=== PATIENT | male | born 1965 | race Caucasian/White ===

== ENCOUNTER 2016-04-10 16:04 | Emergency (ER) | payer BC ==
[2016-04-10 16:13] VITALS: BP 127/77
--- NOTE | 2016-04-10 17:05 | RAD ---
INDICATION: Cough and wheezing COMPARISON: None TECHNIQUE: PA and lateral views of the chest were obtained. FINDINGS: The heart and mediastinum are normal in size and contour. The lungs are grossly clear. There is no evidence of large pleural effusion. Visualized bones are normal for the patient's age. There is no radiographic evidence of free air beneath the diaphragm IMPRESSION: No radiographic evidence of acute cardiopulmonary disease.
[2016-04-10] MEDS ORDERED: Albuterol HFA INHALER* 8 gm MDI INH ONE (17:26)
[2016-04-10] MEDS ORDERED: Benzonatate CAP* 100 MG PO ONE (17:28)
--- NOTE | 2016-04-10 17:37 | UC ---
Throat Pain/Nasal Derek HPI - HPI Summary HPI Summary: THREE DAYS OF FEVER COUGH AND WHEEZING. HISTORY OF PNEUMONIA 20 YRS AGO, FELT LIKE THIS. NO HEAD CONGESTION NO SORE THROAT. FEVER CONTROLLED BY TYLENOL IBUPROFEN - History of Current Complaint Chief Complaint: UCRespiratory Stated Complaint: COUGH Time Seen by Provider: 04/10/16 16:22 Hx Obtained From: Patient Onset/Duration: Sudden Onset Severity: Mild Cough: Nonproductive Associated Signs & Symptoms: Positive: Fever - Epiglottits Risk Factors Epiglottis Risk Factors: Negative - Allergies/Home Medications Allergies/Adverse Reactions: Allergies Allergy/AdvReac Type Severity Reaction Status Date / Time Latex Allergy LOCALIZED Verified 05/30/13 07:48 RASH PMH/Surg Hx/FS Hx/Imm Hx Previously Healthy: Yes Endocrine History Of: Denies: Diabetes, Thyroid Disease, Hyperthyroidism, Hypothyroidism Cardiovascular History Of: Denies: Cardiac Disorders, Hypertension, Pacemaker/ICD Respiratory History Of: Denies: COPD, Asthma GI/ History Of: Denies: Ulcer Neurological History Of: Denies: TIA, Seizures Psychological History Of: Denies: Anxiety, Depression - Surgical History Surgical History: Yes Surgery Procedure, Year, and Place: [id number] 05/03/2007; 2002 CATARACT; Lt ACL 1999; JEREMI INGUINAL HERNIA 1986; DETACHED RETINA - 1980(ORBITS DONE CLEARED BY DR SHRESTHA - Family History Known Family History: Positive: None Negative: Respiratory Disease - Social History Occupation: Employed Full-time Lives: With Family Alcohol Use: None Substance Use Type: None Smoking Status (MU): Never Smoked Tobacco Have You Smoked in the Last Year: No Review of Systems Constitutional: Fever Skin: Negative Eyes: Negative ENT: Negative Respiratory: Cough Cardiovascular: Negative Gastrointestinal: Negative Genitourinary: Negative Motor: Negative Neurovascular: Negative Musculoskeletal: Negative Neurological: Negative Psychological: Negative All Other Systems Reviewed And Are Negative: Yes Physical Exam Triage Information Reviewed: Yes Appearance: Well-Appearing, No Pain Distress, Well-Nourished Vital Signs: Initial Vital Signs Temp 99.1 F 04/10/16 16:10 Pulse 97 04/10/16 16:10 Resp 18 04/10/16 16:10 BP 127/77 04/10/16 16:10 Pulse Ox 99 04/10/16 16:10 Vital Signs Reviewed: Yes Eye Exam: Normal Eyes: Positive: Conjunctiva Clear ENT: Positive: Normal ENT inspection, Hearing grossly normal, Pharynx normal, TMs normal Dental Exam: Normal Neck exam: Normal Neck: Positive: Supple, Nontender, No Lymphadenopathy. Negative: Nuchal Rigidity, Tenderness @ Respiratory: Positive: Chest non-tender, Normal breath sounds, No respiratory distress, No accessory muscle use, Wheezing Cardiovascular Exam: Normal Cardiovascular: Positive: RRR, No Murmur, Pulses Normal Abdominal Exam: Normal Abdomen Description: Positive: Nontender, No Organomegaly Musculoskeletal Exam: Normal Musculoskeletal: Positive: Strength Intact Neurological Exam: Normal Psychological Exam: Normal Psychological: Positive: Normal Response To Family Skin Exam: Normal Throat Pain/Nasal Course/Dx - Differential Dx/Diagnosis Differential Diagnosis/HQI/PQRI: Pharyngitis, Sinusitis, URI Provider Diagnoses: BRONCHITIS WITH BRONCHOSPASM Discharge - Discharge Plan Condition: Stable Disposition: HOME Prescriptions: Benzonatate CAP* [Tessalon CAP*] 100 mg PO TID #15 cap Patient Education Materials: Acute Bronchitis (ED), Bronchospasm (ED) Referrals: Javid Lopez MD [Primary Care Provider] -
== END 2016-04-10 17:40 | disposition home or self-care (01) ==
LOC: UCEAST 16:04
DX: J20.9 Acute bronchitis, unspecified (principal)
CPT/HCPCS: 71020; 99212; A9270-GY; G0463

== ENCOUNTER 2018-01-04 09:22 | Inpatient (IN) | payer BC ==
[~2018-01-04 09:22] MED LIST: Bacitracin IV* 50,000 UNITS INJ ONE; Buffered Lidocaine 0.9% SYRIN* 5 ML/SYR SYRINGE INTRADERM ONE; Famotidine IV* 10 MG/ML 2 ML (20 mg) IV ONE; Lidocaine 1% MPF wEPI 200,000* 30 ML SDV ONE; Scopolamine 1.5 mg* PATCH TRANSDERM ONE; Thrombin 5,000 UNITS* 1 APPLIC KIT - topical use - TOPICAL ONE
[2018-01-04] MEDS ORDERED: Scopolamine 1.5 mg* PATCH ONE (09:25)
[2018-01-04] MEDS ORDERED: Famotidine IV* 10 MG/ML 2 ML (20 mg) ONE (09:25)
[2018-01-04] MEDS ORDERED: ceFAZolin 2 GM PREMIX in ORs 2 GM/50 ML BAG IVPB ONE (09:30)
[2018-01-04] MEDS ORDERED: Lidocaine 2% PF * 5 ML VIAL ONE (09:55)
[2018-01-04] MEDS ORDERED: Dexamethasone IV* 4 MG/ML 1 ML (4 MG) ONE ×2 (09:55→10:54)
[2018-01-04] MEDS ORDERED: fentaNYL* 50 MCG/ML 5 ML VIAL (250 MCG VIAL) ONE (09:55)
[2018-01-04] MEDS ORDERED: Cisatracurium* 2 MG/ML MDV 5 ML ONE (09:55)
[2018-01-04] MEDS ORDERED: Ondansetron INJ* 2 MG/ML VIAL ONE (09:55)
[2018-01-04] MEDS ORDERED: Propofol* 10 MG/ML 20 ML BTL IV PUSH ONE (09:55)
[2018-01-04] MEDS ORDERED: KETAMINE HCL* 50 MG/ML 10 ML VIAL ONE (09:55)
[2018-01-04] MEDS ORDERED: Artificial Tear OPHTH.OINT* 3.5 GM ONE (09:56)
[2018-01-04] MEDS ORDERED: Midazolam* 1 MG/ML 5 ML VIAL (5 MG) ONE (09:56)
[2018-01-04] MEDS ORDERED: EPHEDrine (Pressors)* 50 MG/ML VIAL ONE (11:29)
[2018-01-04] MEDS ORDERED: fentaNYL* 50 MCG/ML 2 ML VIAL (100 MCG VIAL) ONE (12:25)
[2018-01-04] MEDS ORDERED: HYDROmorphone INJ1* 1 MG/ML SYRINGE ONE (13:10)
[2018-01-04] MEDS ORDERED: Acetaminophen TAB* 325 MG PO PRN (13:46)
[2018-01-04] MEDS ORDERED: Magnesium Hydroxide LIQ* 30 ML UDC PO PRN (13:46)
[2018-01-04] MEDS ORDERED: Ondansetron INJ* 2 MG/ML VIAL IV PRN ×2 (13:46→14:12)
[2018-01-04] MEDS ORDERED: Cyclobenzaprine TAB* 10 MG PO PRN (13:50)
[2018-01-04] MEDS ORDERED: Naloxone* 0.4 MG/ML 1 ML VIAL IV PRN (14:12)
[2018-01-04] MEDS ORDERED: fentaNYL* 50 MCG/ML 2 ML VIAL (100 MCG VIAL) IV PRN (14:12)
[2018-01-04] MEDS: HYDROcodone/ACETAMIN 5-325 MG* 1 TAB PO PRN ×2 (15:02→20:27)
[2018-01-05] MEDS: HYDROcodone/ACETAMIN 5-325 MG* 1 TAB PO PRN ×2 (03:24→10:14)
--- NOTE | 2018-01-05 08:08 | OP ---
DATE OF OPERATION: 01/04/18 - ROOM #333 DATE OF : 61 SURGEON: James Appiah MD. INDEPENDENT FILM MAKER: CRISTI Hong. The case was done with the assistance of a surgical PA because of the complexity of the case. ANESTHESIA: General. PRE-OP DIAGNOSES: Degenerative disk disease, herniated nucleus pulposus C5-6. POST-OP DIAGNOSES: Degenerative disk disease, herniated nucleus pulposus C5-6. OPERATIVE PROCEDURE: The patient underwent anterior cervical diskectomy and fusion at C5-6 with PEEK interbody cage, locally harvested bone graft and DBX, and anterior instrumentation with plate and screws. ESTIMATED BLOOD LOSS: 15 cc. COMPLICATIONS: None. SUMMARY: The patient is a very pleasant 52-year-old gentleman with complaints of neck pain radiating to the right upper extremity. The patient had MRI findings consistent with right disk herniation at C5-6. After failing conservative modalities, she was offered the option of surgical intervention in the form of anterior cervical diskectomy and fusion at C5-6 level. After explaining the expectation, limitations, possible complications of the procedure with the patient and his with complications including but not limited to bleeding, infection, risk of injury to the adjacent structures, paralysis, , need for additional procedure, anesthesia risk, stroke, blindness, cancer, instability, hardware failure, adjacent level disease, proximal or distal junctional kyphosis, pseudoarthrosis, spinal fluid leak, recurrent laryngeal nerve injury, Leanne syndrome, need for tracheostomy or gastrostomy, need for prolonged ICU stay, anesthesia risk. The patient was agreeable to proceed with surgery and informed consent was obtained. The patient understood that his condition may not improve, in fact may get worse after surgery and that he may need to have additional procedures in the future. The patient also understood that the operative plan may be modified according to intraoperative findings and conditions. DESCRIPTION OF PROCEDURE: The patient was brought to the operating room, was placed under general anesthesia by the anesthesia team. He was carefully positioned supine on a flat-top Kevin table and all bony prominences were meticulously padded. His skin was prepped and draped in a standard fashion. After appropriate surgical pause and patient identification, a right transverse incision was marked at the level of C5-6, as defined with intraoperative fluoroscopic imaging. The skin was infiltrated with local anesthetic and the # 10 surgical blade was used for the skin incision. The skin was gently undermined with tenotomy scissors and the platysma was gently divided with the use of Bovie cautery and tenotomy scissors. The platysma was then gently undermined and the self-retaining retractors were introduced into the field. The plane between the medial border of the sternocleidomastoid and the medial structures was gently developed with the use of soft and blunt dissection and after exposing the anterior spine and dissecting the prevertebral fascia, intraoperative fluoroscopic imaging was used to confirm the appropriate level. After confirmation of the appropriate surgical level and surgical pause, the self-retaining retractors were introduced into the field. Two [place] pins were then inserted at the C5 and C6 level and gentle retraction was performed. Standard diskectomy was performed after incising the annulus fibrosus with a # 15 surgical blade with the use of pituitary rongeurs, curettes, Kerrison punches and high speed drill while locally harvested bone graft of the anterior osteophytes was saved for the use of the arthrodesis part of the procedure. Under microscopic magnification, high-speed drill was used to complete the diskectomy and the preparation of the disk space and the endplates for the arthrodesis part. The posterior ligament was then gently dissected with #1 Kerrison punches. The dura was found to be free of any pressure phenomenon, as well as both neuroforamina were found to be extremely patent and the spinal cord was pulsating nicely. After confirmation of meticulous hemostasis and copious irrigation, a 9 mm height PEEK Medtronic interbody spacer was inserted after being filled with locally harvested bone graft and DBX putty. A 21 mm ZEVO Medtronic plate was placed after removing of the [place] pins and preparation of the anterior surface of the vertebral body and secured with 15 mm titanium screws. Intraoperative fluoroscopic imaging confirmed excellent placement of all hardware. After confirmation of meticulous hemostasis and meticulous inspection, the self- retaining retractors were removed and the wound was closed by layers over a Solitario drain, which was done through a separate stab wound incision. 2-0 interrupted sutures were used to approximate the platysma while 2-0 Vicryl interrupted sutures were used to approximate the subcutaneous tissue. The skin was then approximated with Dermabond and covered with sterile dressing. At the end of the procedure, all counts were reported to be correct. The patient remained hemodynamically stable throughout the case. He was then extubated and was transferred to recovery in excellent condition, moving all extremities well. The case was done with the assistance of a surgical PA because of the complexity of the case. [id number]/[facility] #: [id number] DEBBY
--- NOTE | 2018-01-05 09:56 | PN ---
Progress Note - Progress Note Date of Service: 01/05/18 SOAP: Subjective: [S/p ACD F C5-6, POD#1. Feeling well this morning, complains of neck soreness. Pain controlled with PO meds. Upper extremity symptoms improving. Eating soft foods well. Ambulating independently.] Objective: [ Vital Signs: Temp Pulse Resp BP Pulse Ox 97.6 F 76 18 127/75 96 01/05/18 03:26 01/05/18 03:26 01/05/18 06:36 01/05/18 03:26 01/05/18 03:26 General: Alert and sitting up in bed, NAD. Neuro: Motor and sensory intact. [place] J collar in place. Incision: Intact and without swelling or erythema. Drain removed today without complication. Wound drain output 01/04/18 01/04/18 01/05/18 18:11 22:00 05:41 Output, FOREIGN #1 5 5 5 ] Assessment: [Satisfactory post-op course. ] Plan: [1. Discharge home today. 2. Discharge instructions reviewed.]
[2018-01-05 10:02] VITALS: BP 133/79
--- NOTE | 2018-01-06 13:37 | DS ---
DISCHARGE SUMMARY: DATE OF ADMISSION: 01/04/18. DATE OF DISCHARGE: 01/05/18. ADMISSION DIAGNOSIS: Degenerative disk disease, herniated nucleus pulposus, C5-6. DISCHARGE DIAGNOSIS: Degenerative disk disease, herniated nucleus pulposus, C5-6. DISPOSITION: Home. CONDITION ON DISCHARGE: Good. SUMMARY: The patient is a very pleasant 52-year-old gentleman with complaints of neck pain radiating to the right upper extremity. MRI revealed a right disk herniation at C5-6. The patient was offere d the option of surgical intervention in the form of anterior cervical diskectomy and fusion at C5-6 level. After explaining the expectation, limitations, possible complications of the procedure to the patient, the patient was agreeable to proceeding with surgery. Informed consent was obtained. The patient tolerated the procedure well, was extubated and transferred to the floor. On the first posto perative day, he continued to improve. His wound was healing nicely. He was able to tolerate p.o. we ll, void, and his pain was under control. He was able to ambulate. His drain was discontinued and h e was found to be ready to be discharged home. Full discharge instructions were given to the patient. [id number]/[facility] #: [id number]
[2018-01-07] MEDS ORDERED: Scopolamine PATCH Remove* 1 NOTE MISC PATCH OFF ONE (06:00)
== END 2018-01-05 11:15 | disposition home or self-care (01) | DRG 23 ==
LOC: AA 09:22 → SSU 14:45
PROVIDERS: ADMIT Neurological Surgery; ATTEND Neurological Surgery
PROC: 0RB30ZZ Excision of Cervical Vertebral Disc, Open Approach (ICD-10-PCS; 2018-01-04)
PROC: 0RG10A0 Fusion of Cervical Vertebral Joint with Interbody Fusion Device, Anterior Approach, Anterior Column, Open Approach (ICD-10-PCS; principal; 2018-01-04 12:45)
DX: M50.122 Cervical disc disorder at C5-C6 level with radiculopathy (principal); G89.29 Other chronic pain; M25.78 Osteophyte, vertebrae; G47.33 Obstructive sleep apnea (adult) (pediatric); G47.00 Insomnia, unspecified; Z98.42 Cataract extraction status, left eye; Z91.040 Latex allergy status; Z82.49 Family history of ischemic heart disease and other diseases of the circulatory system; Z81.8 Family history of other mental and behavioral disorders
CPT/HCPCS: 72020; 72040; A9270-GY; J0690; J1100; J1170; J2001; J2250; J2405; J2704; J3010

== ENCOUNTER 2019-02-15 13:15 | Emergency (ER) | payer BC ==
--- OUTSIDE RECORDS SUMMARY | 2019-02-15 13:29 | XMS REPORT | Continuity of Care Document ---
:1965 External Reference #:[id number] Author Name CRISTI Serra (transmitted by agent of provider Queenie Fisher) Address [address] [place] [address] Care Team Providers Name Role Phone Javid Loepz MD - Family Care Team Information Sequins Slinger [phone] Medicine Problems Active Problems Provider Date Disturbance in sleep behavior Rachana Leon MD Onset: 03/06/2015 Insomnia Rachana Leon MD Onset: 03/06/2015 Obstructive sleep apnea syndrome Nanci Bang DNP, RN, ASSEMBLING FABRICATOR- Onset: Social History Type Date Description Comments Sex Unknown ETOH Use Never used alcohol Tobacco Use Start: Unknown Patient has never smoked Smoking Status Reviewed: 01/02/19 Patient has never smoked Exercise Type/Frequency Exercises regularly Allergies, Adverse Reactions, Alerts Active Allergies Reaction Severity Comments Date Latex 03/06/2015 Medications Active Medications SIG Qnty Indications Ordering Provider Date Cervical Collar Keep on all Vassilios 02/12/2018 Misc times MD Bijal Cyclobenzaprine HCL one by mouth Unknown 03/05/2015 10mg three times a Tablets day as needed spasm Aleve 2 by mouth Unknown 03/05/2015 220mg Capsules twice a day as needed Immunizations Description No Information Available Vital Signs Date Vital Result Comment 01/02/2019 2:28pm Height 80 inches 6'8" Weight 275.00 lb Heart Rate 80 /min BP Systolic Sitting 120 mmHg BP Diastolic Sitting 74 mmHg Pain Level 0 BMI (Body Mass Index) 30.2 kg/m2 10/01/2018 2:52pm Height 80 inches 6'8" Weight 275.00 lb BP Systolic Standing 128 mmHg BP Diastolic Standing 78 mmHg Pain Level 0 BMI (Body Mass Index) 30.2 kg/m2 Results Description No Information Available Procedures Description No Information Available Medical Devices Description No Information Available Encounters Type Date Location Provider Dx Diagnosis Office Visit 10/01/2018 Neurosurgery Juan [facility]ino, Z48.89 Encounter for 3:[facility] other specified surgical aftercare Assessments Date Code Description Provider 01/02/2019 Z48.89 Encounter for other specified surgical aftercare CRISTI Serra 10/01/2018 Z48.89 Encounter for other specified surgical aftercare CRISTI Serra Plan of Treatment No Information Available Functional Status Description No Information Available Mental Status Description No Information Available Referrals Description No Information Available
[2019-02-15 13:43] LABS: ABS Monocytes 0.8 10^3/ul (0-0.8); ABS Neutrophils 5.6 10^3/ul (1.5-7.7); Eosinophil % 0.6 %; Hematocrit 48 % (42-52); Hemoglobin 16.1 g/dL (14.0-18.0); Lymphocyte % 13.4 %; Mean Corpuscular HGB Conc 34 g/dL (31-36); Mean Corpuscular Hemoglobin 29 pg (27-31); Mean Corpuscular Volume 86 fL (80-94); Platelet Count 179 10^3/uL (150-450); Red Blood Count 5.57 10^6 /uL (4.18-5.48); Red Cell Distribution Width 14 % (10-15); White Blood Count 7.4 10^3/uL (3.5-10.8)
[2019-02-15 13:53] LABS: INR 1.15 (0.82-1.09)
[2019-02-15 14:02] LABS: Albumin 4.3 g/dL (3.2-5.2); Albumin/Globulin Ratio 1.5 (1-3); BUN/Creatinine Ratio 17.6 (8-20); Calcium 9.6 mg/dL (8.6-10.3); EGFR African American 85.9 (>60); Globulin 2.9 g/dL (2-4); Potassium 4.2 mmol/L (3.5-5.0); Total Bilirubin 1.3 mg/dL (0.2-1.0); Total Protein 7.2 g/dL (6.4-8.9)
[2019-02-15] MEDS ORDERED: Aspirin 81 mg CHEW TAB* 81 MG TAB.CHEW PO ONE (14:45)
--- NOTE | 2019-02-15 14:46 | ED ---
HPI Chest Pain - HPI Summary HPI Summary: This patient is a 53 year old male presenting to [facility] with a chief complaint of chest pain. He states it woke him up this morning. He reports SOB upon exertion. He states the pain radiated to his jaw, neck, and shoulder.. He denies n/v and skin diaphoresis. He states it hurts to take a deep breath. He describes his pain as an ache. He rates his pain 5/10 in severity. He localizes his pain to the lower left sternum. - History of Current Complaint Chief Complaint: EDChestWallPain Time Seen by Provider: 02/15/19 14:36 Hx Obtained From: Patient Onset/Duration: Started Hours Ago Pain Intensity: 5 Pain Scale Used: 0-10 Numeric Chest Pain Location: Lower Sternal - Allergy/Home Medications Allergies/Adverse Reactions: Allergies Allergy/AdvReac Type Severity Reaction Status Date / Time latex AdvReac Mild Rash Verified 02/15/19 13:25 PMH/Surg Hx/FS Hx/Imm Hx Endocrine/Hematology History: Denies: Hx Diabetes, Hx Thyroid Disease Cardiovascular History: Denies: Hx Hypertension, Hx Pacemaker/ICD, Hx Peripheral Vascular Disease Respiratory History: Reports: Hx Sleep Apnea - does not use machine- mild Denies: Hx Asthma, Hx Chronic Obstructive Pulmonary Disease (COPD) GI History: Denies: Hx Ulcer Musculoskeletal History: Reports: Hx Tendonitis Denies: Hx Arthritis, Hx Rheumatoid Arthritis, Hx Osteoporosis, Hx Scoliosis Sensory History: Denies: Hx Cataracts, Hx Contacts or Glasses, Hx Glaucoma, Hx Hearing Aid Opthamlomology History: Denies: Hx Cataracts, Hx Contacts or Glasses, Hx Glaucoma Neurological History: Denies: Hx Headaches, Hx Seizures, Hx Transient Ischemic Attacks (TIA), Other Neuro Impairments/Disorders Psychiatric History: Denies: Hx Anxiety, Hx Depression, Hx Panic Disorder - Cancer History Hx Chemotherapy: No - Surgical History Surgery Procedure, Year, and Place: [id number] 05/03/2007;. 2003 CATARACT; . Lt ACL 1999;. JEREMI INGUINAL HERNIA 1986;. DETACHED RETINA - 1980(ORBITS DONE 04/12/[address] SHRESTHA); Hx Anesthesia Reactions: No Infectious Disease History: No Infectious Disease History: Denies: Hx Hepatitis, Hx Human Immunodeficiency Virus (HIV), Hx of Known/ Suspected MRSA, Hx Shingles, Hx Tuberculosis, History Other Infectious Disease, Traveled Outside the [place] in Last 30 Days - Family History Known Family History: Positive: None Negative: Respiratory Disease - Social History Alcohol Use: None Substance Use Type: Reports: None Smoking Status (MU): Never Smoked Tobacco Have You Smoked in the Last Year: No Review of Systems Negative: Skin Diaphoresis Positive: Chest Pain Positive: Shortness Of Breath Negative: Vomiting, Nausea All Other Systems Reviewed And Are Negative: Yes Physical Exam - Summary Physical Exam Summary: Constitutional: Well-developed, Well-nourished, Alert. (-) Distressed Skin: Warm, Dry HENT: Normocephalic; Atraumatic Eyes: Conjunctiva normal Neck: Musculoskeletal ROM normal neck. (-) JVD, (-) Stridor, (-) Tracheal deviation Cardio: Rhythm regular, rate normal, Heart sounds normal; Intact distal pulses; The pedal pulses are 2+ and symmetric. Radial pulses are 2+ and symmetric. (-) Murmur Pulmonary/Chest wall: Effort normal. (-) Respiratory distress, (-) Wheezes, (-) Rales Abd: Soft, (-) tenderness, (-) Distension, (-) Guarding, (-) Rebound Musculoskeletal: (-) Edema Lymph: (-) Cervical adenopathy Neuro: Alert, Oriented x3 Psych: Mood and affect Normal Triage Information Reviewed: Yes Vital Signs On Initial Exam: Initial Vitals Temp Pulse Resp BP Pulse Ox 98.6 F 68 18 169/85 98 02/15/19 13:22 02/15/19 13:22 02/15/19 13:22 02/15/19 13:22 02/15/19 13:22 Vital Signs Reviewed: Yes Procedures - Sedation Patient Received Moderate/Deep Sedation with Procedure: No Diagnostics - Vital Signs Vital Signs Temp Pulse Resp BP Pulse Ox 02/15/19 13:22 98.6 F 68 18 169/85 98 - Laboratory Lab Results: Lab Results 02/15/19 02/15/19 02/15/19 Range/Units 13:32 13:32 13:32 WBC 7.4 (3.5-10.8) 10^3/uL RBC 5.57 H (4.18-5.48) 10^6 /uL Hgb 16.1 (14.0-18.0) g/dL Hct 48 (42-52) % MCV 86 (80-94) fL MCH 29 (27-31) pg MCHC 34 (31-36) g/dL RDW 14 (10-15) % Plt Count 179 (150-450) 10^3/uL MPV 8.0 (7.4-10.4) fL Neut % (Auto) 75.2 % Lymph % (Auto) 13.4 % [place] % (Auto) 10.4 % Eos % (Auto) 0.6 % Baso % (Auto) 0.4 % Absolute Neuts (auto) 5.6 (1.5-7.7) 10^3/ul Absolute Lymphs (auto) 1.0 (1.0-4.8) 10^3/ul Absolute Monos (auto) 0.8 (0-0.8) 10^3/ul Absolute Eos (auto) 0.0 (0-0.6) 10^3/ul Absolute Basos (auto) 0.0 (0-0.2) 10^3/ul Absolute Nucleated RBC 0.0 10^3/ul Nucleated RBC % 0.0 INR (Anticoag Therapy) 1.15 H (0.82-1.09) Sodium 137 (135-145) mmol/L Potassium 4.2 (3.5-5.0) mmol/L Chloride 104 (101-111) mmol/L Carbon Dioxide 25 (22-32) mmol/L Anion Gap 8 (2-11) mmol/L BUN 19 (6-24) mg/dL Creatinine 1.08 (0.67-1.17) mg/dL Est GFR ( Amer) 85.9 (>60) Est GFR (Non-Af Amer) 71.0 (>60) BUN/Creatinine Ratio 17.6 (8-20) Glucose 101 H (70-100) mg/dL Calcium 9.6 (8.6-10.3) mg/dL Total Bilirubin 1.30 H (0.2-1.0) mg/dL AST 22 (13-39) U/L ALT 26 (7-52) U/L Alkaline Phosphatase 56 (34-104) U/L Troponin I 0.00 (<0.03) ng/mL Total Protein 7.2 (6.4-8.9) g/dL Albumin 4.3 (3.2-5.2) g/dL Globulin 2.9 (2-4) g/dL Albumin/Globulin Ratio 1.5 (1-3) Result Diagrams: 02/15/19 13:32 02/15/19 13:32 Lab Statement: Any lab studies that have been ordered have been reviewed, and results considered in the medical decision making process. - Radiology CXR 1 Radiology Interpretation Completed By: Radiologist Summary of Radiographic Findings: Patchy left basilar atelectasis versus consolidation. ED Provider has reviewed this report. CXR 2 Radiology Interpretation Completed By: Radiologist Summary of Radiographic Findings: Elevated left hemidiaphragm resulting in hypoinflation. Airspace opacification atelectasis favored but infiltrate can have similar appearance. ED Provider has reviewed this report. - EKG 1318 Cardiac Rate: NL - 87 BPM EKG Rhythm: Sinus Rhythm Ectopy: PVCs Summary of EKG Findings: Multiple PVCs, no STEMI. Dr. Infante has reviewed and interpreted this EKG. Chest Pain Course/Dx - Course Course Of Treatment: This patient is a 53 year old male presenting to [facility] with a chief complaint of chest pain, SOB on exertion. First CXR reveals Patchy left basilar atelectasis versus consolidation. Second CXR reveals Elevated left hemidiaphragm resulting in hypoinflation. Airspace opacification atelectasis favored but infiltrate can have similar appearance. Labs reveal RBC 5.57 H, INR 1.15 H, total Bilirubin 1.13 H. EKG showed multiple PVCs. He was administered aspirin and toradol in the ED. Plan for discharge was discussed with the patient and he was agreeable with this plan. Patient with low HEART score, no history of CAD/HTN/DM/VTE. Increased left sided CP with movement, certainly appears to be a positional component to his symptoms, likely secondary to chest wall pain. Patient notes that he ran yesterday as well as used a stationary bike, no CP/SOB during exertion. Exercises on a regular basis. Patient afebrile , normal WBC, normal O2 sat, no symptoms of pneumonia, thus chest x-ray findings most consistent with atelectasis versus consolidation. Patient comfortable with discharge home. Has PCP for follow-up. - Diagnoses Provider Diagnoses: Atypical chest pain Discharge ED - Sign-Out/Discharge Documenting (check all that apply): Patient Departure - Discharge - Discharge Plan Condition: Stable Disposition: HOME Patient Education Materials: Chest Pain (ED) Referrals: Javid Lopez MD [Primary Care Provider] - 3 Days Additional Instructions: Return to ED with new or worsening symptoms. - Billing Disposition and Condition Condition: STABLE Disposition: Home - Attestation Statements Document Initiated by Asad: Yes Documenting Scribe: Lamin Weaver Provider For Whom Asad is Documenting (Include Credential): Luis Infante DO Scribe Attestation: ILamin scribed for Luis Infante DO on 02/15/19 at 1759. Scribe Documentation Reviewed: Yes Provider Attestation: The documentation as recorded by the Lamin payton accurately reflects the service I personally performed and the decisions made by Luis cho DO Status of Scrgarrick Document: Viewed
[2019-02-15] MEDS ORDERED: Ketorolac INJ* 30 MG/ML 1 ML VIAL IV PUSH ONE (15:59)
[2019-02-15] MEDS ORDERED: NS 0.9% 1000 ML** 1,000 ML IV ONE (15:59)
[2019-02-15] MEDS ORDERED: Lidocaine PATCH 5%* 1 PATCH TRANSDERM ONE (16:00)
[2019-02-15 17:28] VITALS: BP 145/81
[2019-02-15] MEDS ORDERED: Lidocaine Patch REMOVE* 1 NOTE MISC SCH (21:00)
== END 2019-02-15 17:38 | disposition home or self-care (01) ==
LOC: ED 13:15
DX: R07.89 Other chest pain (principal); R06.02 Shortness of breath; Z91.040 Latex allergy status
CPT/HCPCS: 36415; 71045; 71046; 80053; 83735; 84484; 85025; 85610; 93005; 96361; 96374; 99282; A9270-GY; J1885

== ENCOUNTER 2019-02-18 17:52 | Emergency (ER) | payer BC ==
--- NOTE | 2019-02-18 18:06 | ED ---
HPI Cardiac - HPI Summary HPI Summary: This patient is a 53 year old male presenting to [facility] with a chief complaint of possible PE. He states he was hear last Monday morning. He reports SOB upon exertion. He states the pain radiated to his jaw, neck, and shoulder. He states it hurts to take a deep breath. He describes his pain as an ache. He rates his pain 5/10 in severity. He localizes his pain to the lower left sternum. He states he feels better than 2 days ago. He states he fell 6 days ago on his back when he slipped on ice outside. He states a Hx of PE in his father. CXR on Monday indicated possible pneumonia. Pt denies any fever, chills , erythema of eyes, sore throat, cough, abdominal pain, N/V, dysuria, hematuria , myalgia, edema, rash, or dizziness. - History of Current Complaint Stated Complaint: POS PE PER EMS Time Seen by Provider: 02/18/19 17:57 Hx Obtained From: Patient Onset/Duration: Started Hours Ago Pain Intensity: 5 Pain Scale Used: 0-10 Numeric Chest Pain Location: Mid Sternal Associated Signs and Symptoms: Positive: Shortness of Breath - Allergy/Home Medications Allergies/Adverse Reactions: Allergies Allergy/AdvReac Type Severity Reaction Status Date / Time latex AdvReac Mild Rash Verified 02/15/19 13:25 PMH/Surg Hx/FS Hx/Imm Hx Endocrine/Hematology History: Denies: Hx Diabetes, Hx Thyroid Disease Cardiovascular History: Denies: Hx Hypertension, Hx Pacemaker/ICD, Hx Peripheral Vascular Disease Respiratory History: Reports: Hx Sleep Apnea - does not use machine- mild Denies: Hx Asthma, Hx Chronic Obstructive Pulmonary Disease (COPD) GI History: Denies: Hx Ulcer Musculoskeletal History: Reports: Hx Tendonitis Denies: Hx Arthritis, Hx Rheumatoid Arthritis, Hx Osteoporosis, Hx Scoliosis Sensory History: Denies: Hx Cataracts, Hx Contacts or Glasses, Hx Glaucoma, Hx Hearing Aid Opthamlomology History: Denies: Hx Cataracts, Hx Contacts or Glasses, Hx Glaucoma Neurological History: Denies: Hx Headaches, Hx Seizures, Hx Transient Ischemic Attacks (TIA), Other Neuro Impairments/Disorders Psychiatric History: Denies: Hx Anxiety, Hx Depression, Hx Panic Disorder - Cancer History Hx Chemotherapy: No - Surgical History Surgery Procedure, Year, and Place: [id number] 05/03/2007;. 2003 [facility]; . Lt ACL 1999;. [facility] INGUINAL HERNIA 1986;. DETACHED RETINA - 1980(ORBITS DONE 04/12/[address] SHRESTHA); Hx Anesthesia Reactions: No Infectious Disease History: Denies: Hx Hepatitis, Hx Human Immunodeficiency Virus (HIV), Hx of Known/ Suspected MRSA, Hx Shingles, Hx Tuberculosis, History Other Infectious Disease, Traveled Outside the [place] in Last 30 Days - Family History Known Family History: Positive: Other - PE in father - Social History Alcohol Use: None Substance Use Type: Reports: None Smoking Status (MU): Never Smoked Tobacco Have You Smoked in the Last Year: No Review of Systems Negative: Fever, Chills Negative: Erythema Negative: Sore Throat Positive: Chest Pain Positive: Shortness Of Breath. Negative: Cough Negative: Abdominal Pain, Vomiting, Nausea Negative: dysuria, hematuria Negative: Myalgia, Edema Negative: Rash All Other Systems Reviewed And Are Negative: Yes Physical Exam - Summary Physical Exam Summary: Constitutional: Well-developed, Well-nourished, Alert. (-) Distressed Skin: Warm, Dry HENT: Normocephalic; Atraumatic Eyes: Conjunctiva normal Neck: Musculoskeletal ROM normal neck. (-) JVD, (-) Stridor, (-) Tracheal deviation Cardio: Rhythm regular, rate normal, Heart sounds normal; Intact distal pulses; The pedal pulses are 2+ and symmetric. Radial pulses are 2+ and symmetric. (-) Murmur Pulmonary/Chest wall: Effort normal. (-) Respiratory distress, (-) Wheezes, (-) Rales Abd: Soft, (-) tenderness, (-) Distension, (-) Guarding, (-) Rebound Musculoskeletal: (-) Edema Lymph: (-) Cervical adenopathy Neuro: Alert, Oriented x3 Psych: Mood and affect Normal Triage Information Reviewed: Yes Vital Signs On Initial Exam: Temp Pulse Resp BP Pulse Ox 98.2 F 68 16 145/94 99 02/18/19 18:00 02/18/19 18:00 02/18/19 18:00 02/18/19 18:00 02/18/19 18:00 Vital Signs Reviewed: Yes Procedures - Sedation Patient Received Moderate/Deep Sedation with Procedure: No Diagnostics - Laboratory Result Diagrams: 02/18/19 18:13 02/18/19 18:13 Lab Statement: Any lab studies that have been ordered have been reviewed, and results considered in the medical decision making process. - CT CTA Chest CT Interpretation Completed By: Radiologist Summary of CT Findings: 1. Moderate pulmonary emboli pertinient with inferior lingular and left lower lbe pulmonary infarcts and associated pleural effusion. No right heart strain. 2. Reactive left hilar lymph node. ED Provider has reviewed this report. - EKG 1805 Cardiac Rate: NL - 65 BPM EKG Rhythm: Sinus Rhythm Ectopy: PVCs Summary of EKG Findings: No STEMI. ED Physician has reviewed and interpreted this EKG. Disposition - Course Course Of Treatment: This patient is a 53 year old male presenting to [facility] with a chief complaint of possible PE. CTA chest revealed 1. Moderate pulmonary emboli pertinient with inferior lingular and left lower lbe pulmonary infarcts and associated pleural effusion. No right heart strain. 2. Reactive left hilar lymph node. Labs were unremarkable. Patient was administered Omnipaque and Xarelto in the ED. Patient maintained his oximetry. Discussed bleeding risk of anticoagulation. Discussed avoidence of NSAIDs. Plan for discharge was discussed with the patient and he was agreeable with this plan. - Diagnoses Provider Diagnoses: Pulmonary embolism, Pulmonary infarction, Pleural effusion, left Discharge ED - Sign-Out/Discharge Documenting (check all that apply): Patient Departure - Discharge - Discharge Plan Condition: Stable Disposition: HOME Prescriptions: Rivaroxaban TAB(*) [Xarelto 15 mg(*)] 15 mg PO BID #42 tab Patient Education Materials: Pulmonary Embolism (ED), Pleural Effusion (ED) Referrals: Javid Lopez MD [Primary Care Provider] - 5 Days Additional Instructions: Avoid NSAIDs. Follow up with Dr. Lopez in 5-7 days. - Billing Disposition and Condition Condition: STABLE Disposition: Home - Attestation Statements Document Initiated by Scribe: Yes Documenting Scribe: Lamin Weaver Provider For Whom Asad is Documenting (Include Credential): Alejandro Salazar MD Scribe Attestation: Lamin Chavez, scribed for Alejandro Salazar MD on 02/18/19 at 2107. Scribe Documentation Reviewed: Yes Provider Attestation: The documentation as recorded by the Lamin payton accurately reflects the service I personally performed and the decisions made by me, Alejandro Salazar MD Status of Scribe Document: Viewed
[2019-02-18] MEDS ORDERED: Iohexol 350* (CONTRAST) 500 ML MDV IV ONE (18:18)
[2019-02-18 18:24] LABS: ABS Basophils 0.1 10^3/ul (0-0.2); ABS Eosinophils 0.1 10^3/ul (0-0.6); ABS Monocytes 0.5 10^3/ul (0-0.8); ABS Neutrophils 2.8 10^3/ul (1.5-7.7); Eosinophil % 2.5 %; Hematocrit 42 % (42-52); Hemoglobin 14.3 g/dL (14.0-18.0); Mean Corpuscular HGB Conc 34 g/dL (31-36); Mean Corpuscular Hemoglobin 29 pg (27-31); Mean Corpuscular Volume 86 fL (80-94); Mean Platelet Volume 7.6 fL (7.4-10.4); Nucleated Red Blood Cells % 0.2; Platelet Count 181 10^3/uL (150-450); Red Blood Count 4.91 10^6 /uL (4.18-5.48); Red Cell Distribution Width 14 % (10-15); White Blood Count 4.4 10^3/uL (3.5-10.8)
[2019-02-18 18:41] LABS: Albumin 3.8 g/dL (3.2-5.2); Albumin/Globulin Ratio 1.4 (1-3); BUN/Creatinine Ratio 19.4 (8-20); Calcium 9.2 mg/dL (8.6-10.3); EGFR African American 96.1 (>60); EGFR Non-African American 79.4 (>60); Globulin 2.8 g/dL (2-4); Total Bilirubin 0.9 mg/dL (0.2-1.0); Total Protein 6.6 g/dL (6.4-8.9)
[2019-02-18] MEDS ORDERED: Rivaroxaban TAB(*) 15 MG PO ONE (20:07)
[2019-02-18 20:42] VITALS: BP 128/86
== END 2019-02-18 20:35 | disposition home or self-care (01) ==
LOC: ED 17:52
DX: I26.99 Other pulmonary embolism without acute cor pulmonale (principal); J90 Pleural effusion, not elsewhere classified; Z91.040 Latex allergy status
CPT/HCPCS: 36415; 71275; 80053; 83605; 84484; 85025; 87040; 93005; 99283; Q9967

== ENCOUNTER 2021-01-06 06:11 | Inpatient (IN) ==
[~2021-01-06 06:11] MED LIST changes: -Bacitracin IV* 50,000 UNITS INJ ONE; -Buffered Lidocaine 0.9% SYRIN* 5 ML/SYR SYRINGE INTRADERM ONE; +Buffered Lidocaine 1% SYRIN 1 ml INTRADERM ONE; +Famotidine IV 10 MG/ML 2 ml VIAL (20 mg) IV ONE; -Famotidine IV* 10 MG/ML 2 ML (20 mg) IV ONE; +Lactated Ringers 1000 ml BAG 1,000 ML IV SCH; -Lidocaine 1% MPF wEPI 200,000* 30 ML SDV ONE; -Scopolamine 1.5 mg* PATCH TRANSDERM ONE; -Thrombin 5,000 UNITS* 1 APPLIC KIT - topical use - TOPICAL ONE
[2021-01-06] MEDS ORDERED: Famotidine IV 10 MG/ML 2 ml VIAL (20 mg) ONE (06:39)
[2021-01-06] MEDS ORDERED: ceFAZolin 2 GM in NS PREMIX 2 GM/100 ML BAG IVPB ONE (06:39)
[2021-01-06] MEDS ORDERED: Remifentanil 2 MG VIAL ONE (07:00)
[2021-01-06] MEDS ORDERED: Artificial Tear OPHTH.OINT 3.5 GM ONE (07:00)
[2021-01-06] MEDS ORDERED: Propofol 10 mg/ml 100 ML BTL 200 ML ONE (07:00)
[2021-01-06] MEDS ORDERED: ceFAZolin VIAL VIAL ONE (07:04)
[2021-01-06] MEDS ORDERED: Lidocaine 1% w EPI 1:200,000 SDV 30 ML VIAL ONE (07:04)
[2021-01-06] MEDS ORDERED: Lidocaine 2% PF 5 ML VIAL ONE (07:13)
[2021-01-06] MEDS ORDERED: Cisatracurium 2 MG/ML MDV 5 ML ONE (07:13)
[2021-01-06] MEDS ORDERED: HYDROmorphone 1 MG/1 ML SYRINGE ONE ×3 (07:13→14:24)
[2021-01-06] MEDS ORDERED: Dexamethasone IV 4 MG/ML VIAL 1 ml VIAL ONE ×2 (07:13→09:12)
[2021-01-06] MEDS ORDERED: Midazolam 5 mg/5 ml VIAL 1 mg/ml 5 ml VIAL (5 mg) ONE (07:13)
[2021-01-06] MEDS ORDERED: Ondansetron 4 mg VIAL 2 MG/ML 2 ml VIAL ONE (07:13)
[2021-01-06] MEDS ORDERED: Propofol 10 MG/ML 20 ML BTL ONE ×3 (07:13→12:44)
[2021-01-06] MEDS ORDERED: Phenylephrine 40 mcg/mL 10mL (400mcg) SYRINGE ONE (09:39)
[2021-01-06] MEDS ORDERED: Phenylephrine IV 10 MG/ML 1 ml VIAL ONE (10:11)
[2021-01-06] MEDS ORDERED: Acetaminophen IV 1 GM/100ML 100 ML IV ONE (12:04)
[2021-01-06] MEDS ORDERED: Ondansetron 4 mg VIAL 2 MG/ML 2 ml VIAL IV PRN ×2 (12:34→13:53)
[2021-01-06] MEDS ORDERED: DiMENhydriNATE IV 50 mg/ml 1 ml VIAL IV PUSH PRN (12:34)
[2021-01-06] MEDS ORDERED: HYDROmorphone 1 MG/1 ML SYRINGE IV PRN (12:34)
[2021-01-06] MEDS ORDERED: Naloxone 0.4 mg VIAL 0.4 mg/ml 1 ml VIAL IV PRN (12:34)
[2021-01-06] MEDS ORDERED: fentaNYL 100 mcg/2 ml 50 MCG/ML VIAL IV PRN (12:34)
[2021-01-06] MEDS ORDERED: fentaNYL 100 mcg/2 ml 50 MCG/ML VIAL ONE (13:09)
[2021-01-06] MEDS ORDERED: HYDROcodone/ACETAMIN 5/325 mg TAB PO PRN (13:53)
[2021-01-07] MEDS: HYDROcodone/ACETAMIN 5/325 mg TAB PO PRN ×2 (02:24→07:52)
[2021-01-07 11:18] VITALS: BP 127/72
[2021-01-09] MEDS ORDERED: Scopolamine PATCH Remove NOTE PATCH OFF ONE (06:00)
== END 2021-01-07 14:20 | disposition home or self-care (01) | DRG 321 ==
LOC: AA 06:11 → SSU 13:53
PROVIDERS: ADMIT Neurological Surgery; ATTEND Neurological Surgery

== ENCOUNTER 2022-01-04 06:50 | Inpatient (IN) ==
[~2022-01-04 06:50] MED LIST changes: -Famotidine IV 10 MG/ML 2 ml VIAL (20 mg) IV ONE
[2022-01-04] MEDS ORDERED: ceFAZolin 1 GM in Dextrose 1 GM/50 ML BAG ONE (07:00)
[2022-01-04] MEDS ORDERED: ceFAZolin 2 GM in NS PREMIX 2 GM/100 ML BAG IVPB ONE (07:01)
[2022-01-04] MEDS ORDERED: Dexamethasone IV 4 MG/ML VIAL 1 ml VIAL ONE (07:03)
[2022-01-04] MEDS ORDERED: Ondansetron 4 mg VIAL 2 MG/ML 2 ml VIAL ONE (07:03)
[2022-01-04] MEDS ORDERED: Lidocaine 2% PF 5 ML VIAL ONE (07:03)
[2022-01-04] MEDS ORDERED: Propofol 10 mg/ml 100 ML BTL 100 ML ONE (07:04)
[2022-01-04] MEDS ORDERED: Phenylephrine IV 10 MG/ML 1 ml VIAL ONE (07:05)
[2022-01-04] MEDS ORDERED: Naloxone 0.4 mg VIAL 0.4 mg/ml 1 ml VIAL IV PRN (07:19)
[2022-01-04] MEDS ORDERED: Prochlorperazine 5 mg/ml 2 ml VIAL (10 mg) IV PRN (07:19)
[2022-01-04] MEDS ORDERED: Ropivacaine 5 MG/ML 20 ML VIAL 0.5% (100 MG) ONE (07:27)
[2022-01-04] MEDS ORDERED: Midazolam 2 mg/2 ml VIAL 1 mg/ml 2 ml VIAL (2 mg) ONE (07:34)
[2022-01-04] MEDS ORDERED: fentaNYL 250 mcg/5 ml 50 MCG/ML 5 ml VIAL (250 MCG) ONE (08:31)
[2022-01-04] MEDS ORDERED: ROPIVACAINE 5 MG/ML 30 ML BTL (0.5%) ONE (08:31)
[2022-01-04] MEDS ORDERED: Rocuronium 50 mg VIAL 10 mg/ml 5 ml VIAL (50 mg) ONE (08:35)
[2022-01-04] MEDS ORDERED: Sodium Chloride 0.9% 10 ML ONE (08:36)
[2022-01-04] MEDS ORDERED: HYDROmorphone 0.5 MG/0.5 ML SYRINGE ONE ×2 (09:41→10:33)
[2022-01-04] MEDS ORDERED: Phenylephrine 40 mcg/mL 10mL (400mcg) SYRINGE ONE (09:41)
[2022-01-04] MEDS ORDERED: Ondansetron 4 mg VIAL 2 MG/ML 2 ml VIAL IV PRN (09:48)
[2022-01-04] MEDS ORDERED: Lactulose 30 ml UDC PO PRN (09:48)
[2022-01-04] MEDS ORDERED: Morphine 2 MG/ML SYRINGE IV PRN (09:48)
[2022-01-04] MEDS ORDERED: Ondansetron ODT 4 mg TAB 4 MG TAB PO PRN (09:48)
[2022-01-04] MEDS ORDERED: Magnesium Hydroxide LIQ 30 ML UDC PO PRN (09:48)
[2022-01-04] MEDS ORDERED: HYDROmorphone 1 MG/1 ML SYRINGE ONE (12:05)
[2022-01-04] MEDS: HYDROmorphone 1 MG/1 ML SYRINGE IV PRN ×5 (12:06→12:33)
[2022-01-04] MEDS: Lactated Ringers 1000 ml BAG 1,000 ML IV SCH (14:21)
[2022-01-04] MEDS: ceFAZolin 1 GM ADVAN 1 GM in NS 0.9% 50 ML 50 ML IVPB SCH (17:14)
[2022-01-04] MEDS: Magnesium Hydroxide LIQ 30 ML UDC PO SCH (22:38)
[2022-01-05] MEDS: ceFAZolin 1 GM ADVAN 1 GM in NS 0.9% 50 ML 50 ML IVPB SCH ×2 (00:43→08:14)
[2022-01-05] MEDS: Lactated Ringers 1000 ml BAG 1,000 ML IV SCH (02:00)
[2022-01-05 06:51] LABS: Hematocrit 43 % (42-52); Hemoglobin 14.4 g/dL (14.0-18.0); Mean Platelet Volume 7.9 fL (7.4-10.4); Platelet Count 182 10^3/uL (150-450)
[2022-01-05 07:11] LABS: Calcium 8.7 mg/dL (8.6-10.3); Potassium 4.1 mmol/L (3.5-5.0); eGFR CKD-EPI 87.2 (>60)
[2022-01-05] MEDS: Magnesium Hydroxide LIQ 30 ML UDC PO SCH (08:13)
[2022-01-05] MEDS ORDERED: Vitamin THERAPEUTIC TAB PO SCH (09:00)
[2022-01-05 11:07] VITALS: BP 124/73
== END 2022-01-05 14:52 | disposition home or self-care (01) | DRG 302 ==
LOC: SSU → AA 06:50 → INTOOBSV 06:50 → OBSVTOIN 09:48 → SSU 15:25
PROVIDERS: ADMIT Orthopaedic Surgery Adult Reconstructive Orthopaedic Surgery; ATTEND Orthopaedic Surgery Adult Reconstructive Orthopaedic Surgery